=== PATIENT | male | born 1955 | race Caucasian/White ===

== ENCOUNTER 2017-05-04 10:15 | Emergency (ER) | payer OTHER ==
[~2017-05-04] VITALS: Ht 170.2 cm; Wt 59.0 kg
[2017-05-04 10:19] VITALS: Ht 170.2 cm; Wt 59.0 kg
--- NOTE | 2017-05-04 10:58 | ERD ---
ER Documentation Chief Complaint Chief Complaint NOSE BLEED ON AND OFF X 1 WEEK , NO ACTIVE BLEEDING HPI Patient is a 61-year-old male who presents complaining of intermittent nosebleeds over the past week. He states it was usually on the right side but the last time it happened which was earlier this morning he was on the left side so he came to the emergency room because he. At this time he denies any active bleeding. He denies any headache, dizziness, lightheadedness, or any other complaints other than the intermittent nosebleeds. He takes a daily aspirin but does not take any other anticoagulants. ROS All systems reviewed and are negative except as per history of present illness. Allergies Allergies: Coded Allergies: No Known Allergy (Unverified , 05/04/17) PMhx/Soc History of Surgery: Yes (gallstones) Anesthesia Reaction: No Hx Neurological Disorder: No Hx Respiratory Disorders: No Hx Cardiac Disorders: No Hx Psychiatric Problems: No Hx Miscellaneous Medical Probl: Yes (DM) Hx Alcohol Use: Yes (SOCIALLLY) Hx Substance Use: No Hx Tobacco Use: No Smoking Status: Never smoker FmHx Family History: No diabetes Physical Exam Vitals Vital Signs Date Time Temp Pulse Resp B/P Pulse Ox O2 Delivery O2 Flow Rate FiO2 05/04/17 10:19 97.7 90 18 145/77 99 Physical Exam INITIAL VITAL SIGNS: Reviewed by me GENERAL: Awake, alert and oriented x 4, well appearing, nontoxic, speaking in full sentences. No acute distress HEAD: Atraumatic NECK: Supple. No masses. Full range of motion. No meningismus. No midline tenderness. EYES: EOMI. PERRL. NOSE: Normal nose, no active bleeding or any evidence of bleeding, no dried blood around nostrils THROAT: No tonilar erythema or edema. No exudates. Uvula midline. No kissing tonsils. RESPIRATORY: Clear to auscultation bilaterally. Symmetric chest wall rise. No wheezing or rales. No accessory muscle use. CV: Regular rate and rhythm. No murmurs, rubs, or gallops. Procedures/MDM This is a 61-year-old male who presents with intermittent nosebleeds. He has no active bleeding at this time. He takes a daily aspirin but does not take any other anticoagulants. He has no headache, no dizziness, no visual changes, and no other complaints other than intermittent nosebleeds. I explained him what he should do if the nosebleed occurs which includes putting pressure on the bridge of the nose and leaning forward and holding this position for 10-15 minutes. I explained to the patient that I could check a CBC and coags to make sure there are no abnormalities but he declined. Patient counseled regarding my diagnostic impression and care plan. Prior to discharge all questions answered. Pt agrees with treatment plan and understands strict return precautions. Pt is instructed to follow up with primary care provider within 24- 48 hours. Precautionary instructions provided including instructions to return to the ER if not improving or for any worsening or changing symptoms or concerns. Departure Diagnosis: Primary Impression: Epistaxis Condition: Stable Patient Instructions: Epistaxis (Adult) Additional Instructions: Call your primary care doctor TOMORROW for an appointment during the next 1-2 days.See the doctor sooner or return here if your condition worsens before your appointment time. YANETH BAIG PA-C May 04, 2017 10:58
[2017-05-04 11:17] VITALS: BP 135/77; PULSE 66; RESP 18
== END 2017-05-04 11:19 | disposition home or self-care (01) ==
LOC: FTE 10:15
DX: R04.0 Epistaxis (principal); E11.9 Type 2 diabetes mellitus without complications
CPT/HCPCS: 99282

== ENCOUNTER 2019-01-01 09:49 | Emergency (ER) | payer OTHER ==
[~2019-01-01] VITALS: Ht 152.4 cm; Wt 54.0 kg
[2019-01-01 09:54] VITALS: Ht 152.4 cm; Wt 54.0 kg
[2019-01-01] MEDS ORDERED: ACETAMINOPHEN 500 MG TAB PO STA (10:28)
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
[2019-01-01] MEDS ORDERED: ACET500C5 PO (12:32)
[2019-01-01 12:54] VITALS: BP 159/78; PULSE 98; RESP 20
== END 2019-01-01 12:56 | disposition home or self-care (01) ==
LOC: FTE 09:49
DX: M79.662 Pain in left lower leg (principal)
CPT/HCPCS: 93971